=== PATIENT | male | born 1960 | race Caucasian/White ===

== ENCOUNTER 2020-05-02 20:21 | Inpatient (IN) | payer MEDICAID, OTHER ==
[~2020-05-02] VITALS: Ht 172.7 cm; Wt 85.0 kg
[2020-05-02] MEDS ORDERED: IBUPROFEN 800 MG TAB PO ONE (20:45)
[2020-05-02] MEDS ORDERED: SODIUM CHLORIDE 0.9% 1,000 ML IVB ONE (21:55)
[2020-05-02] MEDS ORDERED: KETOROLAC TROMETH 30 MG/ML 1ML VIAL IV ONE (22:00)
[2020-05-02] MEDS ORDERED: TAMSULOSIN HYDROCHLORIDE 0.4 MG CAP PO ONE (22:00)
[2020-05-02 22:29] LABS: Basophils # (auto) 0.1 10 ^3/uL (0-0.2); Basophils % (auto) 0.7 % (0.0-2.0); Eosinophils # (auto) 0.1 10 ^3/uL (0-0.8); Eosinophils % (auto) 1.4 % (0.0-7.0); Hematocrit 44.7 % (41.0-53.0); Hemoglobin 14.8 g/dL (13.5-17.5); Lymphocytes # (auto) 1.8 10 ^3/uL (0.4-5.4); Lymphocytes % (auto) 18.1 % (10.0-50.0); Mean Corpuscular Hgb Conc. 33.1 g/dL (32.0-36.0); Mean Corpuscular Volume 87.5 fL (80.0-100.0); Monocytes # (auto) 0.5 10 ^3/uL (0-1.3); Monocytes % (auto) 5.5 % (0.0-12.0); Neutrophils # (auto) 7.3 10 ^3/uL (1.6-8.6); Neutrophils % (auto) 74.3 % (37.0-80.0); Nucleated Red Blood Cells % 0.1 %; Platelet Count (auto) 253 10^3/uL (140-450); Red Blood Cells 5.11 10^6/uL (4.5-5.90); Red Cell Distribution Width 13.4 % (11.8-14.3); White Blood Cell 9.9 10^3/uL (4.4-10.8)
[2020-05-02 22:42] LABS: Albumin 3.9 g/dL (3.4-5.0); Calcium 8.9 mg/dL (8.5-10.1); Magnesium 2.7 mg/dL (1.6-2.6); Potassium 4.5 mmol/L (3.5-5.1)
[2020-05-02 22:45] LABS: BUN/Creatinine Ratio 15.6; Bilirubin, Total 0.4 mg/dL (0.2-1.0); Total Protein 7.4 g/dL (6.4-8.2)
[2020-05-02] MEDS ORDERED: ACETAMINOPHEN 325 MG TAB PO PRN (23:15)
[2020-05-02] MEDS ORDERED: MORPHINE SULF INJ 2 MG/ML SYRINGE 1ML IV PRN (23:15)
[2020-05-02] MEDS ORDERED: SODIUM CHLORIDE 0.9% 1,000 ML IV ONE (23:15)
[2020-05-02 23:35] LABS: Urine Bacteria FEW /hpf (None Seen); Urine Blood 2+ /uL (Negative); Urine Hyaline Cast FEW /lpf (0 - 2); Urine Mucus FEW (None Seen); Urine Specific Gravity 1.029 (1.001-1.035); Urine WBC 4 /hpf (0 - 3)
[2020-05-02] MEDS: TAMSULOSIN HYDROCHLORIDE 0.4 MG CAP PO SCH (23:54)
[2020-05-02] MEDS: HYDROcodone-ACET 5/325MG TAB PO PRN (23:54)
--- NOTE | 2020-05-03 00:58 | NUR ---
MS admit from ER FLOR[facility] admitted to tele/MS after SBAR received. Patient oriented to Jose R Vaca, primary RN, unit, room, bed, and unit policies regarding patient care and visiting hours. Patient weighed by bedscale and encouraged to call if they need something. All questions and concerns addressed, patient verbalized understanding.
[2020-05-03] MEDS ORDERED: PRAV20TA3 PO (03:34)
[2020-05-03] MEDS: ONDANSETRON HCL 4 MG/2 ML VIAL IV PRN ×3 (03:53→20:00)
[2020-05-03] MEDS: MORPHINE SULF INJ 2 MG/ML SYRINGE 1ML IV PRN ×4 (03:54→20:01)
[2020-05-03 05:00] VITALS: BP 158/90
[2020-05-03] MEDS: HYDROcodone-ACET 5/325MG TAB PO PRN ×2 (06:26→13:44)
--- NOTE | 2020-05-03 07:45 | NUR ---
Patient resting quietly in bed with no distress noted at this time. Patient stable.
[2020-05-03 08:15] LABS: Basophils # (auto) 0 10 ^3/uL (0-0.2); Basophils % (auto) 0.4 % (0.0-2.0); Eosinophils # (auto) 0 10 ^3/uL (0-0.8); Eosinophils % (auto) 0.2 % (0.0-7.0); Hematocrit 41.6 % (41.0-53.0); Hemoglobin 13.8 g/dL (13.5-17.5); Lymphocytes # (auto) 0.8 10 ^3/uL (0.4-5.4); Lymphocytes % (auto) 9.4 % (10.0-50.0); Mean Corpuscular Hemoglobin 29.1 pg (28.0-32.0); Mean Corpuscular Hgb Conc. 33.3 g/dL (32.0-36.0); Mean Corpuscular Volume 87.4 fL (80.0-100.0); Monocytes # (auto) 0.4 10 ^3/uL (0-1.3); Monocytes % (auto) 4.9 % (0.0-12.0); Neutrophils # (auto) 7.4 10 ^3/uL (1.6-8.6); Neutrophils % (auto) 85.1 % (37.0-80.0); Platelet Count (auto) 218 10^3/uL (140-450); Red Blood Cells 4.76 10^6/uL (4.5-5.90); Red Cell Distribution Width 13.6 % (11.8-14.3); White Blood Cell 8.7 10^3/uL (4.4-10.8)
[2020-05-03 08:30] VITALS: BP 147/97
[2020-05-03 08:33] LABS: Albumin 3.6 g/dL (3.4-5.0); Calcium 8.2 mg/dL (8.5-10.1); Magnesium 2.3 mg/dL (1.6-2.6); Potassium 3.4 mmol/L (3.5-5.1)
[2020-05-03 08:37] LABS: BUN/Creatinine Ratio 11.3; Bilirubin, Total 0.5 mg/dL (0.2-1.0); Phosphorus 2.1 mg/dL (2.5-4.90); Total Protein 6.6 g/dL (6.4-8.2)
[2020-05-03 08:59] VITALS: BP 98/56
[2020-05-03] MEDS: TAMSULOSIN HYDROCHLORIDE 0.4 MG CAP PO SCH (10:00)
[2020-05-03] MEDS: ENOXAPARIN SOD 40 MG/0.4 ML SYRINGE SC SCH (10:00)
[2020-05-03] MEDS ORDERED: TAMSULOSIN HYDROCHLORIDE 0.4 MG CAP PO SCH (10:00)
--- NOTE | 2020-05-03 10:10 | NUR ---
Patient resting in bed with complaint of 8/10 pain in left flank. AM meds not given; patient NPO. Will medicate for pain. Addendum: 05/03/20 at 1017 by KULDIP KUMAR RN RN Patient medicated for pain.
--- NOTE | 2020-05-03 10:20 | NUR ---
Patient nauseated and throwing up. Will medicate with zofran. Patient ambulated to bathroom and back to bed. Addendum: 05/03/20 at 1023 by KULDIP KUMAR RN RN Medicated for nausea.
[2020-05-03] MEDS ORDERED: LIDOCAINE 2% JELLY 11ml (GLYDO) UR ONE (12:45)
--- NOTE | 2020-05-03 13:45 | NUR ---
Patient medicated for 6/10 left flank pain. Patient stable with Falguni, EMR SPECIALIST at bedside to insert Sarabia.
[2020-05-03] MEDS ORDERED: SODIUM CHLORIDE 0.9% 2,550 ML IV ONE (14:00)
[2020-05-03] MEDS ORDERED: MANNITOL FTV 25% 12.5 GM/50 ML 50 ML IV ONE ×2 (14:00→16:00)
--- NOTE | 2020-05-03 15:00 | NUR ---
Patient resting quietly in bed with no distress noted. Stable.
--- NOTE | 2020-05-03 16:05 | NUR ---
Patient medicated for 10/10 left flank pain. NS bolus started as well. Patient stable at this time.
[2020-05-03 17:00] VITALS: BP 165/94
[2020-05-03] MEDS ORDERED: POTASSIUM CHL 20 Meq TABLET PO ONE (18:30)
[2020-05-03] MEDS ORDERED: FUROSEMIDE 100 MG/10ML VIAL IV ONE (18:30)
--- NOTE | 2020-05-03 18:35 | NUR ---
Patient resting in bed with Dr. Sanchez at bedside. New order given and carried out: morphine 2mg q3h for severe pain
--- NOTE | 2020-05-03 19:06 | NUR ---
Scheduled medications given per order. Emptied 1250mls of clear, yellow urine from Sarabia drainage bag; urine was strained with no stones seen. Patient stable at this time.
--- NOTE | 2020-05-03 19:20 | NUR ---
Opening Shift Note Received report from Ariana BRO. Assumed care of patient, awake and alert. No S/S of distress/SOB or pain. Instructed on POC and to call for assist PRN, will continue to monitor for changes Q1hr and PRN.
[2020-05-03 22:00] VITALS: BP 167/99
--- NOTE | 2020-05-03 22:40 | NUR ---
Patient continue throwing up even after giving Zofran. Paged Dr. Spain's exchange to request for additional N/V medication. Dr. Nichols answered the phone and received orders, will carry out and follow through.
[2020-05-03] MEDS ORDERED: hydrALAZINE HCL 20 MG/ML VL IV PRN (22:45)
[2020-05-03] MEDS: METOCLOPRAMIDE HCL 5MG/ml INJ 2ml VIAL IV PRN (23:00)
[2020-05-04 05:00] VITALS: BP 159/88
[2020-05-04 07:50] VITALS: BP 154/102
--- NOTE | 2020-05-04 07:50 | NUR ---
Patient resting comfortably in bed with no distress noted. Patient stable.
--- NOTE | 2020-05-04 08:50 | NUR ---
Patient asleep at this time.
[2020-05-04 09:00] VITALS: BP 154/102
[2020-05-04] MEDS: ENOXAPARIN SOD 40 MG/0.4 ML SYRINGE SC SCH (10:02)
[2020-05-04] MEDS: TAMSULOSIN HYDROCHLORIDE 0.4 MG CAP PO SCH (10:02)
[2020-05-04] MEDS: POTASSIUM CHL 20 Meq TABLET PO SCH (10:03)
[2020-05-04] MEDS: MORPHINE SULF INJ 2 MG/ML SYRINGE 1ML IV PRN ×3 (10:03→16:54)
--- NOTE | 2020-05-04 10:05 | NUR ---
Patient resting in bed with complaint of 7/10 left flank pain. Scheduled medications and pain medication given per order. Patient stable at this time.
--- NOTE | 2020-05-04 10:40 | NUR ---
Patient resting quietly in bed; states pain is subsiding. Patient stable.
--- NOTE | 2020-05-04 12:20 | NUR ---
Patient asleep. No distress noted.
[2020-05-04 13:00] VITALS: BP 163/101
--- NOTE | 2020-05-04 14:10 | NUR ---
Patient medicated for 06/18 pain in left flank. Patient resting quietly in bed. Addendum: 05/04/20 at 1425 by KULDIP KUMAR RN RN Blood pressure is elevated: 163/101. Rechecked at 1410: 171/103. Called pharmacy for IV hydralazine. Per pharmacy, IV hydralazine is on back order; advised me to call doctor for po order or a different medication. Paged doctor (Rusty/Wood).
--- NOTE | 2020-05-04 14:40 | NUR ---
Patient states pain has not subsided. Will call page doctor again. Emptied 400mls of clear, yellow urine from Sar[place]ia drainage bag. Patient stable.
--- NOTE | 2020-05-04 15:40 | NUR ---
Patient ambulated to bathroom and back to bed.
--- NOTE | 2020-05-04 16:00 | NUR ---
Patient resting in bed with Dr. Spain at bedside. Patient voiced his concern regarding his care. He wanted to have lithotripsy done yasmin to break up his kidney stone. Dr. Spain explained to patient that the machine or equipment to do the procedure is not always in the hospital; it should be here on 05/09/20. Patient was not happy with that answer and was very angry with his tone and demeaner toward the doctor. Dr. Spain spent a significant time in discussion with the patient; approx 20 mins.
--- NOTE | 2020-05-04 16:30 | NUR ---
Dr. Spain went to see the patient a second time and listened again to his concerns. New orders given and carried out.
[2020-05-04] MEDS ORDERED: MANNITOL FTV 25% 12.5 GM/50 ML 50 ML IV ONE (16:45)
[2020-05-04] MEDS ORDERED: SODIUM CHLORIDE 0.9% 3,150 ML IV ONE (16:45)
--- NOTE | 2020-05-04 16:58 | NUR ---
Patient medicated for 10/10 left flank pain. Patient then taken to XR Dept for CT abd/pelvis.
[2020-05-04 17:00] VITALS: BP 165/103
--- NOTE | 2020-05-04 17:15 | NUR ---
Patient returned to unit in stable condition.
[2020-05-04 22:00] VITALS: BP 151/99
[2020-05-04] MEDS: hydrALAZINE HCL 25 MG TAB PO SCH (23:51)
[2020-05-04] MEDS: ONDANSETRON HCL 4 MG/2 ML VIAL IV PRN (23:52)
[2020-05-04] MEDS: HYDROmorphone HCL 2 MG/ML VL IV PRN (23:52)
[2020-05-05] MEDS: METOCLOPRAMIDE HCL 5MG/ml INJ 2ml VIAL IV PRN (03:00)
[2020-05-05] MEDS: HYDROmorphone HCL 2 MG/ML VL IV PRN ×4 (03:00→12:40)
[2020-05-05 05:00] VITALS: BP_SYST 113; BP_SYST 159; BP_DIAS 69; BP_DIAS 95
[2020-05-05] MEDS: hydrALAZINE HCL 25 MG TAB PO SCH ×2 (06:06→17:37)
[2020-05-05] MEDS: ONDANSETRON HCL 4 MG/2 ML VIAL IV PRN ×3 (06:07→12:50)
[2020-05-05 07:44] LABS: Basophils # (auto) 0 10 ^3/uL (0-0.2); Basophils % (auto) 0.1 % (0.0-2.0); Eosinophils # (auto) 0 10 ^3/uL (0-0.8); Eosinophils % (auto) 0.2 % (0.0-7.0); Hemoglobin 14.1 g/dL (13.5-17.5); Lymphocytes % (auto) 8.3 % (10.0-50.0); Mean Corpuscular Hemoglobin 29.3 pg (28.0-32.0); Mean Corpuscular Hgb Conc. 33.5 g/dL (32.0-36.0); Mean Corpuscular Volume 87.4 fL (80.0-100.0); Monocytes # (auto) 1.1 10 ^3/uL (0-1.3); Monocytes % (auto) 9.1 % (0.0-12.0); Neutrophils # (auto) 9.9 10 ^3/uL (1.6-8.6); Neutrophils % (auto) 82.3 % (37.0-80.0); Platelet Count (auto) 205 10^3/uL (140-450); Red Blood Cells 4.81 10^6/uL (4.5-5.90); Red Cell Distribution Width 13.5 % (11.8-14.3); White Blood Cell 12.1 10^3/uL (4.4-10.8)
[2020-05-05 08:00] VITALS: BP 154/91
[2020-05-05 08:03] LABS: Calcium 7.4 mg/dL (8.5-10.1); Magnesium 1.8 mg/dL (1.6-2.6); Potassium 3.5 mmol/L (3.5-5.1)
[2020-05-05 08:05] LABS: BUN/Creatinine Ratio 9.7
[2020-05-05 09:00] VITALS: BP 154/91
[2020-05-05] MEDS: ENOXAPARIN SOD 40 MG/0.4 ML SYRINGE SC SCH (09:17)
[2020-05-05] MEDS: POTASSIUM CHL 20 Meq TABLET PO SCH (09:17)
[2020-05-05 11:04] LABS: INR 1.05 (0.9-1.15); Partial Thromboplastin Time 37.9 sec (23.0-31.2)
[2020-05-05] MEDS ORDERED: cloNIDine HCL 0.1 MG TAB PO PRN (12:45)
[2020-05-05 13:00] VITALS: BP 165/97
--- NOTE | 2020-05-05 14:00 | NUR ---
PT OFF UNIT TO OR FOR CYSTOSCOPY VIA BED, NO ACUTE DISTRESS NOTED AT DEPARTURE.
[2020-05-05] MEDS ORDERED: ceFAZolin 1GM/50ML 50 ML IV ONE (14:12)
[2020-05-05] MEDS ORDERED: IOHEXOL 300 MG/ML 100ML BOTTLE IJ ONE (15:15)
[2020-05-05] MEDS ORDERED: MIDAZOLAM HCL 1MG/1ML-2 ML VIAL ONE (15:24)
[2020-05-05] MEDS ORDERED: SUCCINYLCHOLINE CHLORIDE 20 MG/ML 10ML VIAL IV ONE (15:27)
[2020-05-05] MEDS ORDERED: ROCURONIUM 10MG/ML 10ML VIAL IV ONE (15:27)
[2020-05-05] MEDS ORDERED: METOCLOPRAMIDE HCL 5MG/ml INJ 2ml VIAL ONE (15:28)
[2020-05-05] MEDS ORDERED: LIDOCAINE 2% (LOCAL ANESTH.) PF 5ml SDV ONE (15:28)
[2020-05-05] MEDS ORDERED: PROPOFOL 10 MG/ML 20 ML IV ONE (15:28)
[2020-05-05] MEDS ORDERED: fentaNYL CITRATE 100 MCG/2 ML VL ONE (15:38)
[2020-05-05] MEDS ORDERED: ONDANSETRON HCL 4 MG/2 ML VIAL IV PRN (15:45)
[2020-05-05] MEDS ORDERED: HYDROmorphone HCL 2 MG/ML VL IV PRN ×2 (15:45)
[2020-05-05] MEDS ORDERED: NALOXONE HCL 0.4 MG/ML VIAL IV PRN (15:45)
[2020-05-05] MEDS ORDERED: GLYCOPYRROLATE 0.2 MG/ML 1ML VIAL ONE (15:51)
[2020-05-05 17:00] VITALS: BP 158/90
--- NOTE | 2020-05-05 17:05 | NUR ---
PT BACK TO ROOM. S/P CYSTOSCOPY WITH LEFT URETER STENT. AAOX3, ON 3L VIA N/C DENIED OF PAIN NOR ANY DISCOMFORT AT THIS TIME. VS: 98.5, 139/84, 80, 18, 96% ON 3l, 0/10. WILL CONTINUE TO MONITOR.
--- NOTE | 2020-05-05 17:10 | NUR ---
DR. BURNS AT BEDSIDE. NEW ORDERS OBTAINED: CBC, BMP, MG LEVEL, LEVAQUIN 500MG IVPB DAILY. ORDERS READ BACK AND VERIFIED, WILL CARRY OUT ORDERS.
[2020-05-05] MEDS ORDERED: TAMSULOSIN HYDROCHLORIDE 0.4 MG CAP PO SCH (18:00)
[2020-05-05 22:00] VITALS: BP_SYST 104; BP_SYST 161; BP_DIAS 64; BP_DIAS 97
[2020-05-05] MEDS: HYDROcodone-ACET 10/325MG TAB PO PRN (22:10)
[2020-05-06 05:00] VITALS: BP 154/99
[2020-05-06] MEDS: HYDROcodone-ACET 10/325MG TAB PO PRN (06:24)
[2020-05-06 06:49] LABS: Basophils # (auto) 0.1 10 ^3/uL (0-0.2); Basophils % (auto) 0.4 % (0.0-2.0); Eosinophils # (auto) 0.1 10 ^3/uL (0-0.8); Eosinophils % (auto) 0.6 % (0.0-7.0); Hematocrit 40.5 % (41.0-53.0); Hemoglobin 13.8 g/dL (13.5-17.5); Lymphocytes % (auto) 8.7 % (10.0-50.0); Mean Corpuscular Hemoglobin 29.5 pg (28.0-32.0); Mean Corpuscular Hgb Conc. 34.1 g/dL (32.0-36.0); Mean Corpuscular Volume 86.5 fL (80.0-100.0); Monocytes % (auto) 8.5 % (0.0-12.0); Neutrophils # (auto) 9.5 10 ^3/uL (1.6-8.6); Neutrophils % (auto) 81.8 % (37.0-80.0); Platelet Count (auto) 215 10^3/uL (140-450); Red Blood Cells 4.69 10^6/uL (4.5-5.90); Red Cell Distribution Width 13.4 % (11.8-14.3); White Blood Cell 11.6 10^3/uL (4.4-10.8)
[2020-05-06 07:09] LABS: BUN/Creatinine Ratio 14.3; Calcium 8.1 mg/dL (8.5-10.1); Magnesium 2.1 mg/dL (1.6-2.6); Potassium 3.3 mmol/L (3.5-5.1)
--- NOTE | 2020-05-06 07:30 | NUR ---
Opening Shift Note Assumed care of patient, awake and alert. No S/S of distress/SOB or pain. Instructed on POC and to call for assist PRN, will continue to monitor for changes Q1hr and PRN. Bed is locked and in lowest position. Call light within reach.
[2020-05-06 08:00] VITALS: BP 144/90
[2020-05-06] MEDS: ONDANSETRON HCL 4 MG/2 ML VIAL IV PRN (08:04)
[2020-05-06 09:24] VITALS: BP 144/90
[2020-05-06] MEDS ORDERED: levoFLOXacin 500MG 100 ML IV SCH (10:00)
[2020-05-06] MEDS: POTASSIUM CHL 20 Meq TABLET PO SCH (10:07)
[2020-05-06] MEDS: HYDROmorphone HCL 2 MG/ML VL IV PRN (10:18)
[2020-05-06 12:50] VITALS: BP 157/94
--- NOTE | 2020-05-06 15:16 | NUR ---
Nutrition Assessment Notes Please refer to link for full assessment notes. Est Energy needs: 3460-5815 kcals (20-23 kcal/kgBW) Est Protein needs: 68-85 gms/day (0.8-1.0 gm/kgBW) Will continue to monitor and reassess prn. Addendum: 05/06/20 at [address] Amended: Links added.
--- NOTE | 2020-05-06 15:18 | NUR ---
assessment No post discharge needs identified at this time. Addendum: 05/06/20 at 1519 by Molly DILLON Amended: Links added.
[2020-05-06 16:55] VITALS: BP 160/103
--- NOTE | 2020-05-06 17:20 | NUR ---
PAGED DR. SHANNON REGARDING PATIENT CLEARANCE FOR DISCHARGE. DR. SHANNON STATED PATIENT WILL FOLLOW UP OUTPATIENT AND IS CLEARED FOR DISCHARGE. WILL AWAIT DR. BURNS ORDERS OF DISCHARGE.
--- NOTE | 2020-05-06 19:01 | NUR ---
DISCHARGE PATIENT GIVEN DISCHARGE PAPERWORK/ PRESCRIPTIONS, ALL QUESTIONS AND CONCERNS ANSWERED. IV removal IV DC'd with clean sterile technique, catheter fully intact. Pressure dressing applied to site. Patient tolerated well.
== END 2020-05-06 19:11 | disposition home or self-care (01) | DRG 465 ==
LOC: ER 20:21 → OVERFLOW 20:22 → WEST WING 05-03 00:58
PROVIDERS: ADMIT Hospitalist; ATTEND Hospitalist
PROC: 0T9B70Z Drainage of Bladder with Drainage Device, Via Natural or Artificial Opening (ICD-10-PCS; principal; 2020-05-04)
PROC: 0T778DZ Dilation of Left Ureter with Intraluminal Device, Via Natural or Artificial Opening Endoscopic (ICD-10-PCS; 2020-05-05)
DX: N13.2 Hydronephrosis with renal and ureteral calculous obstruction (principal); E78.5 Hyperlipidemia, unspecified; N40.0 Benign prostatic hyperplasia without lower urinary tract symptoms; Z80.1 Family history of malignant neoplasm of trachea, bronchus and lung; Z82.49 Family history of ischemic heart disease and other diseases of the circulatory system; Z87.442 Personal history of urinary calculi; I12.9 Hypertensive chronic kidney disease with stage 1 through stage 4 chronic kidney disease, or unspecified chronic kidney disease; N18.2 Chronic kidney disease, stage 2 (mild)
CPT/HCPCS: 36415; 71045; 74018; 74176; 76000; 76705; 80048; 80053; 81001; 83735; 84100; 85025; 85610; 85730; G0378; J0330; J0690; J1885; J1956; J2001; J2250; J2405; J2704